=== PATIENT | male | born 1980 | race Caucasian/White ===

== ENCOUNTER → 2018-07-04 | Outpatient (REF) | payer BC | LOC: M LAB REF 17:56 | PROVIDERS: ATTEND Surgery | DX: Z98.52 Vasectomy status (principal) ==

== ENCOUNTER → 2024-05-13 | Outpatient (CLI) | payer BC ==
[2024-05-13 15:52] LABS: CARCINOEMBRYONIC ANTIGEN < 2.0 NG/ML (<2.5)
[2024-05-13 16:07] LABS: CA19-9 TUMOR MARKER,CARBOHYDRA < 1.2 U/ML (<35.0)
== END ==
LOC: M LAB 14:25
PROVIDERS: ATTEND Internal Medicine Nephrology
DX: K83.8 Other specified diseases of biliary tract (principal)